=== PATIENT | female | born 1980 | race Caucasian/White ===

== ENCOUNTER → 2018-05-20 | Outpatient (REF) | payer OTHER | LOC: M SFHCLERA 12:02 | PROVIDERS: ATTEND Physician Assistant | DX: J02.9 Acute pharyngitis, unspecified (principal) ==

== ENCOUNTER → 2021-10-06 | Outpatient (CLI) | payer OTHER | LOC: M WHC 12:17 | PROVIDERS: ATTEND Family Medicine | DX: Z12.31 Encounter for screening mammogram for malignant neoplasm of breast (principal) ==

== ENCOUNTER → 2022-10-15 | Outpatient (CLI) | payer OTHER | LOC: M WHC 15:10 | PROVIDERS: ATTEND Nurse Practitioner Primary Care | DX: Z12.31 Encounter for screening mammogram for malignant neoplasm of breast (principal) ==

== ENCOUNTER → 2023-12-09 | Outpatient (CLI) | payer OTHER | LOC: M WHC 09:11 | PROVIDERS: ATTEND Nurse Practitioner Primary Care | DX: Z12.31 Encounter for screening mammogram for malignant neoplasm of breast (principal) ==

== ENCOUNTER 2024-05-11 11:12 | Emergency (ER) | payer OTHER ==
[~2024-05-11] VITALS: Ht 167.6 cm; Wt 95.3 kg
[2024-05-11] MEDS ORDERED: SYNT100T (11:39)
[2024-05-11] MEDS ORDERED: VENTAER INH (18:12)
[2024-05-11] MEDS ORDERED: AZIT-10 PO (18:12)
[2024-05-11] MEDS ORDERED: BENZ200C70 PO (18:12)
[2024-05-11 18:18] VITALS: BP 144/96; TEMP 97.7; O2SAT 99
== END 2024-05-11 18:24 | disposition home or self-care (01) ==
LOC: M ED 11:12
DX: R05.9 Cough, unspecified (principal); J02.9 Acute pharyngitis, unspecified; Z91.018 Allergy to other foods; Z79.51 Long term (current) use of inhaled steroids; Z79.2 Long term (current) use of antibiotics; Z79.899 Other long term (current) drug therapy

== ENCOUNTER → 2024-08-17 | Outpatient (CLI) | payer OTHER ==
[~2024-08-17] MED LIST: AZIT-10 PO; BENZ200C70 PO; PROHANCE 279.3MG/ML 15ML VIAL ONE; PROHANCE 279.3MG/ML 5ML VIAL ONE; SYNT100T; VENTAER INH
== END ==
LOC: M PLAIMG 15:28
PROVIDERS: ATTEND Nurse Practitioner Primary Care
DX: G93.0 Cerebral cysts (principal)

== ENCOUNTER → 2024-09-25 | Outpatient (CLI) | payer OTHER ==
[~2024-09-25] MED LIST changes: -PROHANCE 279.3MG/ML 15ML VIAL ONE; -PROHANCE 279.3MG/ML 5ML VIAL ONE
== END ==
LOC: M PLAIMG 07:21
PROVIDERS: ATTEND Physician Assistant
DX: M54.2 Cervicalgia (principal)

== ENCOUNTER → 2024-12-09 | Outpatient (CLI) | payer OTHER | LOC: M WHC 11:32 | PROVIDERS: ATTEND Nurse Practitioner Primary Care | DX: Z12.31 Encounter for screening mammogram for malignant neoplasm of breast (principal) ==